=== PATIENT | female | born 1995 | race Caucasian/White ===

== ENCOUNTER 2021-05-26 03:05 | Emergency (ER) | payer OTHER ==
[2021-05-26 05:50] LABS: BASOPHIL 0.6 % (0-2); EOSINOPHIL 1.6 % (0-5); HGB 12.5 g/dl (12.5-16.0); LYMPHOCYTE 28.4 % (15-48); MCH 26.6 pg (25.0-31.0); MCHC 31.3 g/dL (32.0-36.0); MCV 85.1 fL (78.0-100.0); MONOCYTE 7.4 % (0-12); NEUTROPHIL 61.6 % (41-80); NRBC 0; PLT 246 K/uL (150-400); RDW 13.2 % (11.5-14.0); WBC 6.8 K/uL (4.0-10.5)
[2021-05-26 06:15] LABS: ALBUMIN 3.9 g/dL (3.4-5.0); ALKALINE PHOSHATASE 54 U/L (46-116); ALT 17 U/L (14-59); AST 9 U/L (15-37); BILIRUBIN - TOTAL 0.2 mg/dL (0.2-1.0); BUN 18 mg/dL (7-18); BUN/CREAT RATIO (CALC) 24.7 RATIO; CHLORIDE 104 mmol/L (98-107); CO2 (BICARBONATE) 26 mmol/L (21-32); CREATININE 0.73 mg/dL (0.51-0.95); GLOBULIN (CALCULATION) 3.5 g/dL; GLUCOSE 97 mg/dL (74-106); TOTAL PROTEIN 7.4 g/dL (6.4-8.2)
[2021-05-26 06:16] LABS: C-REACTIVE PROTEIN < 0.20 mg/dL (<=0.90)
[2021-05-26 07:23] LABS: BILIRUBIN NEGATIVE (NEGATIVE); BLOOD NEGATIVE Ery/uL (NEGATIVE); CLARITY CLEAR (CLEAR); COLOR YELLOW (YELLOW); GLUCOSE (U) NORMAL (NORMAL); LEUKOCYTES NEGATIVE Leu/uL (NEGATIVE); NITRITE NEGATIVE (NEGATIVE); PROTEIN NEGATIVE (NEGATIVE); SPECIFIC GRAVITY 1.025 (1.001-1.030); UROBILINOGEN 0.2 mg/dL (0.2-1.0)
[2021-05-26] MEDS ORDERED: ONDANSETRON ODT4 MG SL (08:10)
[2021-05-26] MEDS ORDERED: FIORICET1 EACH PO (08:10)
[2021-05-26] MEDS ORDERED: IBUPROFEN800 MG PO (08:10)
== END 2021-05-26 08:00 | disposition home or self-care (01) ==
LOC: FER 03:05
PROVIDERS: Emergency Medicine Emergency Medical Services
DX: R51.9 Headache, unspecified (principal); F90.9 Attention-deficit hyperactivity disorder, unspecified type; Z20.822 Contact with and (suspected) exposure to COVID-19; Z98.890 Other specified postprocedural states; Z79.899 Other long term (current) drug therapy
CPT/HCPCS: 36415; 70450; 80053; 81003; 85025; 86140; J1100; J1885; J2405; J7030; U0002